=== PATIENT | female | born 1980 | race Caucasian/White ===

== ENCOUNTER 2019-08-29 20:19 | Emergency (ER) | payer SELFPAY ==
[~2019-08-29] VITALS: Ht 160 cm; Wt 72.0 kg
[~2019-08-29 20:19] MED LIST: ARIP2TAB3 PO
[2019-08-29 21:28] LABS: CLARITY URINE CLEAR (CLEAR); COLOR URINE YELLOW (YELLOW); KETONES URINE NEGATIVE (NEGATIVE); LEUKOCYTE ESTERASE URINE NEGATIVE (NEGATIVE); NITRITE URINE NEGATIVE (NEGATIVE); OCCULT BLOOD URINE NEGATIVE (NEGATIVE); PROTEIN URINE NEGATIVE (NEGATIVE); SPECIFIC GRAVITY URINE 1.005 (1.005-1.030); UROBILINOGEN URINE 0.2 E.U./dL (0.2-1.0)
[2019-08-29] MEDS ORDERED: ACETAMINOPHEN 325MG TABLET PO STA (21:47)
[2019-08-29] MEDS ORDERED: ONDANSETRON 4MG ODT PO STA (21:47)
[2019-08-29 23:48] VITALS: BP 122/76
== END 2019-08-30 00:08 | disposition home or self-care (01) ==
LOC: ER 20:19
DX: Z20.828 Contact with and (suspected) exposure to other viral communicable diseases (principal); R11.10 Vomiting, unspecified; R05 Cough; F32.9 Major depressive disorder, single episode, unspecified
CPT/HCPCS: 71045; 81003; 81025; 87635; 99284; Q0162